=== PATIENT | female | born 2000 | race Hispanic/Latino ===

== ENCOUNTER 2025-02-20 11:52 | Observation (INO) | payer MEDICAID, OTHER, SELFPAY ==
[2025-02-20] MEDS ORDERED: hydrALAZINE 20 MG/ML VIAL SLOW IVP PRN ×2 (12:40→16:46)
[2025-02-20 12:44] VITALS: BMI 28.3
[2025-02-20 14:53] LABS: Glucose, Urine (Dipstick) 50 mg/dL (Negative); Leukocyte 100 (Negative); Protein, Urine (Dipstick) 15 mg/dl (Neg-Trace); Specific Gravity, Urine 1.015 (1.005-1.030)
[2025-02-20 16:05] LABS: #Basophils 0.04 10x3/uL (0.0-0.2); #Eosinophils 0.12 10x3/uL (0.0-0.5); #Monocytes 0.60 10x3/uL (0.0-1.1); #Neutrophils 5.63 10x3/uL (1.5-8.4); %Basophils 0.4 % (0.0-2.0); %Eosinophils 1.3 % (0.0-6.0); %Lymphocytes 30.0 % (18.0-47.0); %Monocytes 6.5 % (0.0-10.0); %Neutrophils 61.5 % (40.0-75.0); Hematocrit 31.0 % (34.9-44.5); Hemoglobin 10.5 g/dL (12.0-15.5); Mean Corpuscular Hemoglobin 29.7 pg (27.0-33.0); Mean Corpuscular Volume 87.8 fL (81.6-98.3); Platelet Count 269 10x3/uL (150-450); Red Blood Cell (RBC) Count 3.53 10x6/uL (3.90-5.03); White Blood Cell (WBC) Count 9.17 10x3/uL (3.5-10.5)
[2025-02-20] MEDS: cefTRIAXone\\ROCEPHIN 1 GM in Sodium Chloride 0.9% 100 ML IVPB SCH (16:09)
[2025-02-20 16:22] LABS: Bacteria/HPF 4+ HPF (None Seen); CAUTI Indications for Culture Pregnancy; RBC/HPF 0-3 HPF (0-3)
[2025-02-20 16:23] LABS: Urine Culture Reflex Yes Yes
[2025-02-20 16:25] LABS: ALT (SGPT) 7 U/L (Less than 34); AST (SGOT) 10 U/L (11-34); Albumin 3.0 g/dL (3.1-4.5); Alkaline Phosphatase 165 U/L (40-110); Anion Gap 10 mmol/L (10-20); BUN (Urea Nitrogen) 5 mg/dL (7.0-18.7); Bilirubin, Total 0.3 mg/dL (0.3-1.2); Calc. Creatinine Clearance 201 mL/min (70-130); Calcium 8.4 mg/dL (7.8-10.44); Carbon Dioxide 20 mmol/L (22-29); Chloride 109 mmol/L (98-107); Globulin 3.5 g/dL (2.4-3.5); Glucose 109 mg/dL (70-105); Potassium 4.0 mmol/L (3.5-5.1); Sodium 135 mmol/L (136-145)
[2025-02-20] MEDS ORDERED: Ondansetron PF 4 MG/2 ML Vial IVP PRN (16:46)
[2025-02-20] MEDS ORDERED: Oxytocin 30 units/NS 500 ML 500 ML IV SCH (17:00)
[2025-02-20] MEDS: metroNIDAZOLE 500 MG TAB PO SCH (21:23)
[2025-02-21 07:28] VITALS: BP 89/54; TEMP 97.9
== END 2025-02-21 12:30 | disposition home or self-care (01) ==
LOC: CSHLD/OP 11:52 → CSHLD 16:59 → CSHANTE 17:17
PROVIDERS: ADMIT Family Medicine; ATTEND Family Medicine
DX: O23.43 Unspecified infection of urinary tract in pregnancy, third trimester (principal); N39.0 Urinary tract infection, site not specified; Z3A.32 32 weeks gestation of pregnancy
CPT/HCPCS: 76856; 80053; 81001; 85025; 87077; 87086; 87186; 87480; 87510; 87660; 99285; G0378; J0696

== ENCOUNTER 2025-04-01 06:55 | Day surgery (SDC) | payer MEDICAID ==
[2025-04-01] MEDS ORDERED: hydrALAZINE 20 MG/ML VIAL SLOW IVP PRN (07:18)
[2025-04-01 07:22] VITALS: BMI 28.8
== END 2025-04-01 10:25 | disposition home or self-care (01) ==
LOC: CSHLD/OP 06:55
PROVIDERS: ATTEND Family Medicine
DX: O47.1 False labor at or after 37 completed weeks of gestation (principal); Z3A.38 38 weeks gestation of pregnancy
CPT/HCPCS: 96360; 99285

== ENCOUNTER 2025-04-04 18:00 | Day surgery (SDC) | payer MEDICAID ==
[2025-04-04 18:33] VITALS: BMI 28.6
[2025-04-04] MEDS ORDERED: hydrALAZINE 20 MG/ML VIAL SLOW IVP PRN (18:36)
== END 2025-04-04 20:55 | disposition home or self-care (01) ==
LOC: CSHLD/OP 18:00
PROVIDERS: ATTEND Obstetrics & Gynecology
DX: O47.1 False labor at or after 37 completed weeks of gestation (principal); O99.891 Other specified diseases and conditions complicating pregnancy; N89.8 Other specified noninflammatory disorders of vagina; Z3A.38 38 weeks gestation of pregnancy; Z79.899 Other long term (current) drug therapy
CPT/HCPCS: 87480; 87510; 87660; 99285

== ENCOUNTER 2025-04-07 15:46 | Day surgery (SDC) | payer MEDICAID ==
[2025-04-07] MEDS ORDERED: hydrALAZINE 20 MG/ML VIAL SLOW IVP PRN (17:58)
== END 2025-04-07 19:45 | disposition home or self-care (01) ==
LOC: CSHLD/OP 15:46
PROVIDERS: ATTEND Obstetrics & Gynecology
DX: O47.1 False labor at or after 37 completed weeks of gestation (principal); Z3A.39 39 weeks gestation of pregnancy
CPT/HCPCS: 99284

== ENCOUNTER 2025-04-10 06:58 | Day surgery (SDC) | payer MEDICAID ==
[2025-04-10 07:39] VITALS: BMI 29.3
[2025-04-10] MEDS ORDERED: hydrALAZINE 20 MG/ML VIAL SLOW IVP PRN (08:09)
== END 2025-04-10 09:55 | disposition home or self-care (01) ==
LOC: CSHLD/OP 06:58
PROVIDERS: ATTEND Obstetrics & Gynecology
DX: O47.1 False labor at or after 37 completed weeks of gestation (principal); O46.93 Antepartum hemorrhage, unspecified, third trimester; Z3A.39 39 weeks gestation of pregnancy; Z67.40 Type O blood, Rh positive
CPT/HCPCS: 99284